=== PATIENT | male | born 1955 | race African-American/Black ===

== ENCOUNTER 2018-06-08 09:12 | Inpatient (IN) | payer MEDICARE, BC ==
[~2018-06-08] VITALS: Ht 177.8 cm; Wt 81.2 kg
[2018-06-08] MEDS ORDERED: TYLENOL 500MG500 MG PO (15:22)
[2018-06-08] MEDS ORDERED: NORVASC 5MG5 MG/TAB PO (15:23)
[2018-06-08] MEDS ORDERED: ASPIRIN 81M81 MG/TA2 PO (15:24)
[2018-06-08] MEDS ORDERED: LIPITOR20 MG PO (15:25)
[2018-06-08] MEDS ORDERED: FLEXERIL 1010 MG/TAB PO (15:26)
[2018-06-08] MEDS ORDERED: COZAAR100 MG PO (15:27)
[2018-06-08] MEDS ORDERED: MOBIC15 MG PO (15:29)
[2018-06-08] MEDS ORDERED: TOPROL XL100 MG PO (15:31)
[2018-06-08] MEDS ORDERED: OPANA ER40 MG PO (15:34)
[2018-06-08] MEDS ORDERED: K-TAB20 PO (15:35)
[2018-06-08] MEDS ORDERED: FLOMAX 0.40.4 MG/CAP PO (15:36)
[2018-06-08 15:48] VITALS: BP 169/73; PULSE 63; TEMP 98
[2018-06-08 18:00] VITALS: BP 160/70; PULSE 60; TEMP 98.2
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
--- NOTE | 2018-06-08 20:30 | NUR ---
HS med reviewed and taken without problems. Patient alert and oriented x4. Speech slurred and nurse has patient repeat sentence. Patient able to move fingers left hand slightly and shrug shoulder. Moves LLE on bed and wiggles toes. See admission assessment form. Denies pain at this time. Used bedpan and urinal twice and continent liquid brown medium bm x2. Cdif negative. BLE/LUE elevated on pillow.
--- NOTE | 2018-06-09 01:37 | NUR ---
Patient rests in bed with eyes closed. Respirations with ease.
--- NOTE | 2018-06-09 02:00 | NUR ---
Patient awake and assisted onto bed beckwith and with pants/pullup down. No BM but voids 100mls hazy nuris urine. Denies pain or further needs.
[2018-06-09 03:49] VITALS: BP 129/85; PULSE 63; TEMP 98
--- NOTE | 2018-06-09 05:40 | NUR ---
Patient awake. Denies pain. Requests to get up in chair. Max assist to sit up on side of bed. Poor trunkal control and falls backward onto bed. Max 2 assist to transfer to recliner. Mucinex given for c/o chest conjestion.
--- NOTE | 2018-06-09 08:46 | NUR ---
Report from ALINA Faulkner. SCDs off as pt out of bed to chair for breakfast. Speech very slurred but understandable >50% of time. Pt takes one pill at a time with thin liquids. On mech soft diet. Pt reports back pain but declines tylenol at this time. Has wet cough.
--- NOTE | 2018-06-09 11:55 | NUR ---
Tylenol given for back pain per pt's request. Two assist to stand, doff soiled pull ups, and don new. PRECISION [employer]CRA[employer] SYSTEM[employer] ASSEMBLER reports pt was incont of BM shortly after.
--- NOTE | 2018-06-09 15:43 | NUR ---
Initial visit; Patient thanked Pipe Welder for stopping by and offering God's blessings. Patient appeared almost too exausted to talk.
--- NOTE | 2018-06-09 16:14 | NUR ---
MARTHA and SW student met with patient to discuss discharge planning. Patient reports he lives alone in [place]. Patients PCP is Dr Pettit and he obtains his medications from [facility]. Patient reports he has a DPOA and his sister was going to bring it in. SW will request. Patient does not have any equipment at this time and will need to obtain anything he would need at discharge. He reports his apartment is on the ground floor but that he doesnt have a walk in shower. He is willing to call and look into an ADA apartment if needed. His sister offered to have him move in with her however he does not want to do that. MARTHA provided the IPR team conference notes and explained them. Patient will give to sister. SW will continue to follow.
--- NOTE | 2018-06-09 16:52 | NUR ---
Pt's family visiting, questions answered.
[2018-06-09 18:41] VITALS: BP 151/72; PULSE 73; TEMP 98.4
--- NOTE | 2018-06-09 19:37 | NUR ---
Pt to BSC with 2 assist and platform walker, returned to chair, changed into hospital gown, call light in reach, report to ALINA Fountain.
--- NOTE | 2018-06-09 20:30 | NUR ---
PT RESTING IN BED. HO B ELEVATED. VISITING WITH FAMILY. LT MOUTH DROOP. SPEECH DIFFICULT TO UNDERSTAND MOST ITMES. A&O. LT SIDED WEAKNESS. CAN WIGGLE LITTLE FINGER SOME. ABLE TO MOVE TOES UP AND DOWN. GOOD SENSATION NOTED. LOOSE THICK COUGH. UNABLE TO EXPECTORATE SPUTUM. SEE MAR FOR GUAFENISIN GIVEN. PT C/O CHRONIC BACK PAIN. SEE MAR FOR PAIN MEDS GIVEN. ABLE TO SWALLOW PILLS WHOLE WITH WATER. SWALLOW PRECAUTIONS NOTED. CALL LIGHT IN REACH. BED ALARM SET.
--- NOTE | 2018-06-10 01:30 | NUR ---
PT WANTS UP IN RECLINER. 2:1 PIVOT TRANSFER. UNABLE TO MANIPULATE LLE. CHAIR ALARM SET. CALL LIGHT IN REACH.
--- NOTE | 2018-06-10 04:14 | NUR ---
ASSISTED BACK TO BED WITH 2 ASSIST. CALL LIGHT IN REACH. BED ALARM SET. SPEECH VERY DIFFICULT TO UNDERSTAND.
[2018-06-10 04:43] VITALS: BP 149/65; PULSE 65; TEMP 98.2
--- NOTE | 2018-06-10 10:00 | NUR ---
Patient was a two assist with getting in [id number] and transferring to the wheelchair to get ready for therapy.
--- NOTE | 2018-06-10 10:38 | NUR ---
Patient attended morning therapies. Tolerating diet well. He has a very runny nose today with clear drainage. No bowel movement this morning. Used Sxz-dv-gccod lift to help with transferring from recliner to wheelchair. He reports not sleeping well last night due to his bed being uncomfortable. Placed an air mattress on bed this morning. Will continue to monitor.
--- NOTE | 2018-06-10 14:56 | NUR ---
Left message for Dr. Aragon asking if he would want to try patient on Melatonin, since he did not sleep well last night; starting Flonase ?; and requesting an order for RT to see patient due to difficulty with coughing at HS - possible breathing treatment? Awaiting a return call.
--- NOTE | 2018-06-10 15:42 | NUR ---
Dr. Aragon evaluated patient see new orders: Flonase, Breathing Tx's and Melatonin for HS. Will continue to monitor.
[2018-06-10 17:59] VITALS: BP 153/71; PULSE 62; TEMP 97.8
--- NOTE | 2018-06-10 20:30 | NUR ---
FOUND PT LAYING ALMOST SIDEWAYS IN BED. LEGS HANGING OFF SIDE OF BED. REPOSITIONED. BED ALARM SET AT THIS TIME. CALL LIGHT IN REACH.
--- NOTE | 2018-06-10 20:45 | NUR ---
PT RESTING IN BED. SPEECH VERY DIFFICULT TO UNDERSTAND. WANTED UP IN CHAIR. ENC PT TO WAIT FOR 2 NURSES AVAILABILITY. BED ALARM SOUNDING. PT TRYING TO GET OUT OF BED PER SELF. PT RELATED STUFFED UP AND COULDNT BREATHE THROUGH HIS NOSE AND WANTED UP. ENC PT TO BRING HOB UP UNTIL STAFF IS AVAILABLE. LT LEG STIFF. 2:1 MAX ASSIST TO CHAIR. FLONASE GIVEN. CALLED RT TO GIVE SVN TX. CHAIR ALARM SET. CALL LIGHT IN REACH. LT SIDE FLACCID WITH STIFFNESS LLE.
--- NOTE | 2018-06-10 20:56 | NUR ---
DUONEB GIVEN, MUCOMYST NA AT THIS TIME.
--- NOTE | 2018-06-10 21:42 | NUR ---
MAX ASSIST BACK TO BED. MELATONIN GIVN EARLIER. READY FOR SOME SLEEP. CALL LIGHT IN [facility]. BED ALARM SET.
--- NOTE | 2018-06-11 05:00 | NUR ---
ASSISTED PT 2:1 WITH SIT TO STAND LIFT TO [facility]. PASSED LG AMT FLATUS WITH VOID. URINE OSCAR SL HAZY. THEN TRANSFERRED TO RECLINER. PT RELATES HE SLEPT PRETTY WELL THROUGHT THE NIGHT.
[2018-06-11 05:06] VITALS: BP 135/60; PULSE 70; TEMP 98.2
--- NOTE | 2018-06-11 05:15 | NUR ---
CHAIR ALARM SET. CALL IGHT IN REACH. NO OTHER NEEDS.
--- NOTE | 2018-06-11 09:39 | NUR ---
Patient currently working with therapy at this time. He was a one assist with a gait belt to go from sitting position to upright position with this nurse. Patient was able to reposition himself by pushing his bottom back into the chair with this nurse guiding him. Patient not able to use his left arm or leg due to being flaccid. Patient needed set up for grooming this morning, but was able to do the tasks himself. This nurse used sit to stand lift to assist him with getting dressed prior to PT this morning. Denies pain at this time. Will continue to monitor.
[2018-06-11 15:27] VITALS: BP 137/64; PULSE 60; TEMP 98.1
--- NOTE | 2018-06-11 18:00 | NUR ---
Patient attended all therapies today. Family came to visit him multiple times today. Patient's sister will be leaving town for a week starting this weekend. She gave a list of family members to assist with medical concerns to this nurse. Refer to IPR Census sheet. Patient did not have a runny nose today and has been receiving breathing treatments that have been effective. Educated patient on what to do if he gets the feeling that he can't breath. He demonstrated that he was able to use his call light and that he would elevate the head of his bed while waiting for staff to come and evaluate him. He had gotten up last night with out using his call light and said that he would use his call light tonight. Patient denied pain at this time. He had family help him with ordering his meals today. Reported off to night nurse.
--- NOTE | 2018-06-12 03:34 | NUR ---
TJHE PT WAS BEDRESTING, WATCHES BASKET BALL ON TV. PLEASANT, CALLED FOR ASSISTANCE TO THE BR, UP WITH SIT TO STAND LIFT TO TOILET, ATTEMPTED BM, JUST GAS. VOIDED, RETURNED TO BED, HS CARES DONE, HS SNACK OF 2 VANILLA PUDDINGS, REFUSED THE ENSURE. ENCOURAGED FLUIDS HIS URINE IS OSCAR. EXPLAINED TO HIM THAT WE LIKE IT TO LOOK LIKE WEAK LEMNAID AND NOT ICED TEA OR APPLE JUICE. HE WAS ABLE TO PULL HIMSELF UP IN BED WHEN THIS NURSE TRUNDELENBERED HIM. HE HAS AN OCCATIONAL SNEEZE AND COUGH. NO PHLEGM NOTED. HIS SPEECH IS DIFFICULT TO UNDERSTAND. HE APPEARS TO GET ADEQUATE SLEEP.
--- NOTE | 2018-06-12 03:55 | NUR ---
PT INDISPOSED AT THIS TIME.
[2018-06-12 05:48] VITALS: BP 148/75; PULSE 72; TEMP 98.2
--- NOTE | 2018-06-12 14:24 | NUR ---
PT IS SITTING IN RECLINER WITH FAMILY PRESENT. SHIVAM PAIN OR NEEDS.
[2018-06-12 17:17] VITALS: BP 148/57; PULSE 68; TEMP 98
--- NOTE | 2018-06-13 01:38 | NUR ---
THE PT HAS BEEN UP TO THE BR X 3 WITH JUST GAS ELIMINATION, HE KEEPS STATING THAT THE MILK AND ENSURE WILL TRIGGER HIS BOWELS BUT HAVE YET TO DO SO. HE HAS BEEN INC WITHIN HIS DEPENDS X 2. FAMILY VISISTED LAST NIGHT. THE PT HAS A SUPEERFICIAL TINY CRACKED AREA, RIGHT UPPER INNER BUTTOCK. CLEANSED, PAT DRY. HE STATED THAT HE CAN'T SLEEP WITH THE SCD'S ON, BUT WAS WILLING TO WEAR THEM UNTIL ABOUT 2330. APPEARS TO GET ADEQUATE SLEEP.
--- NOTE | 2018-06-13 04:40 | NUR ---
BEDRESTING WITH EYES CLOSED, RESP EVEN. APPEARS TO GET ADEQUATE SLEEP.
[2018-06-13 05:40] VITALS: BP 156/77; PULSE 72; TEMP 97.5
--- NOTE | 2018-06-13 09:57 | NUR ---
Report from ALINA Srinivasan. SCD's off as pt to chair for breakfast, legs elevated, call light in reach. Pt reported he needed changed when nurse brought morning pills, transferred with xen-bw-ybwda lift to , was incont of urine, changed pull ups, assisted with donning shirt, duarte cares provided, returned to chair. Young man visiting and enjoying conversation w/ pt. Pt's speech still slurred, difficult to understand at times, tylenol and flexeril given for back pain per pt's request. Takes a couple pills at a time with thin liquids. Gripper socks in place. Chair alarm on.
--- NOTE | 2018-06-13 11:52 | NUR ---
Pt's sister and niece visiting. Boosted pt up in chair. Alarm on, call light in reach. Reports pain 5/10 at this time. Yellow gripper socks in place.
--- NOTE | 2018-06-13 17:03 | NUR ---
Pt bedrested this afternoon, called to toilet but incont immediately, changed and to chair with lift. Call light in reach, legs elevated.
[2018-06-13 17:18] VITALS: BP 133/65; PULSE 69; TEMP 98.6
[2018-06-13 17:39] VITALS: BP 136/65; PULSE 66; TEMP 98.1
--- NOTE | 2018-06-13 18:20 | NUR ---
Pt called to toilet, was continent, returned to bed, SCDs in place, alarm on, call light in reach.
--- NOTE | 2018-06-14 01:17 | NUR ---
THE PT CALLED FOR ASSISTANCE TO THE BR, UP WITH 2 ASSIST WITH SIT TO STAND LIFT. HS SNACK GIVEN, LOTION TO VERY DRY LEGS, TOLERATED SCD'S LONGER TONIGHT, INC OF BLADDER. JUST PASSING GAS, ENCOURAGED TO TAKE BOWEL REGIME AGAIN, ACCEPTED ALL TONIGHT. SENNA, COLACE AND MIRALAX IN CRANBERRY JUICE TAKEN. HE STATED THAT HE WAS HAVING INC ISSUES EVEN PRIOR TO HIS CVA. EXTRA STRENGTH TYLENOL AND MELATONIN AT HS WITH GOOD EFFECT.
--- NOTE | 2018-06-14 04:22 | NUR ---
ASSISTED THE PT WITH USING HIS URINAL, VOIDED. APPEARS TO GET ADEQUATE SLEEP.
--- NOTE | 2018-06-14 05:05 | NUR ---
CALLED TO SAY HE WANTED UP TO THE CHAIR, EXPLAINED NO SECOND PERSON AVAILABLE RIGHT NOW, MUST WAIT UNTIL 2 ASSIST TO GET UP.
[2018-06-14 05:21] VITALS: BP 122/71; PULSE 64; TEMP 98.3
--- NOTE | 2018-06-14 08:30 | NUR ---
Report from ALINA Srinivasan. Pt to chair for breakfast. Takes pills a couple at a time with thin liquids. Yellow gripper socks in place, chair alarm on, call light in reach. Speech cont to be garbled. PRN pain meds given for back.
--- NOTE | 2018-06-14 12:20 | NUR ---
SCDs off this morning as pt to chair for breakfast prior to therapies.
--- NOTE | 2018-06-14 17:39 | NUR ---
Pt toileted with lift, to chair for supper, set up assist, some coughing on mech soft roast beef in gravy. Call light in reach. Alarm on.
[2018-06-14 18:01] VITALS: BP 104/50; PULSE 69; TEMP 97.8
--- NOTE | 2018-06-14 19:50 | NUR ---
Patient report received from Alis Augustin at bedside during shift change. Patient resting in bed comfortably at this time. SCDs to bilateral lower ext. Asleep but arouses easily. Patient reports some mild pain to his back, requests flexeril and tylenol before bed. No other needs observed/reported at this time.
[2018-06-14 20:45] VITALS: BP 118/64; PULSE 80; TEMP 98.6
[2018-06-15 04:39] VITALS: BP 104/67; PULSE 67; TEMP 97.6
--- NOTE | 2018-06-15 07:08 | NUR ---
Patient report given to ALINA Ray. Patient resting comfortably throughout the night. Extra strength tylenol given to patient around 0500 for back pain.
--- NOTE | 2018-06-15 11:47 | NUR ---
Follow-up visit; Patient spoke about his stroke and thanked Urban Sociologist for looking in on him and keeping him in her prayers.
[2018-06-15 15:58] VITALS: BP 110/63; PULSE 74; TEMP 98.1
--- NOTE | 2018-06-15 16:09 | NUR ---
Patient resting in recliner at this time, call light in reach and was two person pivot transfer to his bed from his recliner. Patient tolerating diet well. Reported pain to lower back this afternoon 8 and given prn flexeril and tylenol. Will continue to monitor.
--- NOTE | 2018-06-15 21:30 | NUR ---
HS meds reviewed and given. Reports pain to right shoulder and muscle relaxant given. Mucinex given for c/o chest/nasal conjestion and RT called and into do treatment. Reports feels breathing better following treatment. Up 2 assist via sit to stand lift to the bathroom and back to bed. Has poor trunkal control and assist given to stay at sitting position on side of bed.
--- NOTE | 2018-06-15 23:08 | NUR ---
Reports flexeril helped pain. Lights turned off.
--- NOTE | 2018-06-16 00:45 | NUR ---
Patient up to bathroom via lift x 3 this shift. Incontinent large amount of urine x1 and had medium soft formed brown BM.
--- NOTE | 2018-06-16 03:30 | NUR ---
Patient calls and reports he's incontinent of urine. Changed/cleaned by nurse.
[2018-06-16 03:44] VITALS: BP 111/62; PULSE 71; TEMP 97.6
--- NOTE | 2018-06-16 14:31 | NUR ---
Patient resting in recliner at this time, call light in reach, alarm is on. Patient attended all therapies today and is currently with therapy at this time. Patient will be started on bowel training regimen that was discussed at today's care plan meeting. Patient continues to have a cough and expiratory wheezes. See new orders per Dr. Goodman.
--- NOTE | 2018-06-16 14:50 | NUR ---
ASKED PT IF HE WOULD LIKE A BREATHING TX AT THIS TIME. HE SAYS HE IS FEELING BETTER AND WILL WAIT UNTIL TONIGHT.
--- NOTE | 2018-06-16 16:01 | NUR ---
MARTHA contacted patient's sister to review IPR team conference notes. She reports she will be back in [place] next week and will visit. She is also interested in doing a family meeting. MARTHA will inform IPR director of this. MARTHA then met with patient and provided IPR team conference notes.
--- NOTE | 2018-06-16 16:07 | NUR ---
SW scheduled family meeting with sister for 06/23 at 2pm.
[2018-06-16 16:49] VITALS: BP 126/71; PULSE 84; TEMP 98.2
--- NOTE | 2018-06-16 19:00 | NUR ---
Patient attended all therapies, tolerated diet well today. Currently is resting in bed, alarm on and call light in reach. Patient was a two max assist pivot transfer this evening, with lots of cueing. Patient has been having expiratory wheezing see new orders for CXR today. Patient has been having a low blood pressure and was seen by Dr. Goodman today, see new orders to lower dose of Metoprolol per Dr. Goodman. Patient was taking Flexeril yesterday and it made him very drowsy and made his transfers more unsteady. See new orders for Flexeril to be decreased to 5 mg instead of 10 mg. Patient was updated on this. Family and a friend stopped by to see him this evening. Social Work called and updated patient's sister Lazaro following the care plan meeting today.
--- NOTE | 2018-06-16 20:45 | NUR ---
HS meds along with tylenol and flexeril for low back pain reviewed and given whole without problems. Rests in bed and RT into give treatment. Lung sounds initially with expiratory course rhonki but clears with couph.
--- NOTE | 2018-06-16 22:45 | NUR ---
Calls for urinal and assisted to place. Already incontinent of urine and TELEPHONE REPAIRER changes.
--- NOTE | 2018-06-16 23:30 | NUR ---
Patient rests with eyes closed. Respirations with ease.
--- NOTE | 2018-06-17 01:00 | NUR ---
Patient awake and attempted to use urinal. Incontinent urine in brief and changed.
--- NOTE | 2018-06-17 02:31 | NUR ---
Patient reports chest/nasal conjestion and repostions self up in bed. Mucinex given and RT called patient request for breathing treatment.
[2018-06-17 04:11] VITALS: BP 105/58; PULSE 83; TEMP 97.4
--- NOTE | 2018-06-17 05:59 | NUR ---
PATIENT NOW RESTS WITH EYES CLOSED. RESPIRATIONS WITH EASE.
[2018-06-17 08:17] VITALS: BP 115/70
--- NOTE | 2018-06-17 08:24 | NUR ---
Report from ALINA Faulkner. SCDs off as pt to chair for breakfast, takes pills one at a time with thin liquids, some coughing. Chair alarm on, call light in reach.
--- NOTE | 2018-06-17 08:38 | NUR ---
Mucinex given per pt's request, for chest congestion.
--- NOTE | 2018-06-17 12:00 | NUR ---
Pt declined offer to toilet, states he went before group therapy.
[2018-06-17 15:17] VITALS: BP 115/55; PULSE 82; TEMP 98.3
--- NOTE | 2018-06-17 16:49 | NUR ---
Pt has male visitor, to chair for supper, alarm on, call light in reach. Set up assist for food.
--- NOTE | 2018-06-17 22:30 | NUR ---
PT HAS BEEN SLEEPING. AWAKE NOW. INCONTINENT OF URINE. WEARS ADULT DIAPERS. SKIN INTREGRITY INTACT. CLEANED UP AND REPOSTIONED. RT SIDE FLACCID EXCEPT ALITTLE MOVEMENT IN RT FINGERS. SPPECH GARBLED BUT A&O X4. PT HAS CONGESTED RESPIRATIONS. VERY WEAK COUGH UNABLE TO EXPECTORATE ANY SPUTUM. RT HERE EALIER TO PROVIDE SVN TX. MUCINEX GIVEN. SEE MAR FOR TYLENOL, MELATONIN, AND FLEXARIL GIVEN. CALL LIGHT IN REACH. BED ALARM SET.
--- NOTE | 2018-06-17 22:50 | NUR ---
PT USED CALL LIGHT. NEEDED ASSIST WITH REPOSITIONED. FOUND PT LEANED TO RIGHT EDGE ON BED AND SCOOTED DOWN IN BED. PT WAS TRYING TO MALTSTER BANANA ON FLOOR. PT EXHIBITS POOR SAFETY JUDGEMENTS. 2:1 REPOSITIONED. RT BEDRAILS ELEVATED. LT DOWN. ENC PT TO CALL FOR ASSIST RATHER THAN POSSIBLY FALLING OUT OF BED. PT AGREED. CALL LIGHT IN REACH. BED ALARM SET.
[2018-06-18 04:49] VITALS: BP 137/57; PULSE 78; TEMP 97.8
--- NOTE | 2018-06-18 07:20 | NUR ---
PT RECEIVED ALERT/AWAKE JUST FINISHING BREAKFAST. BBSH COARSE IN LOWER LOBES .WHEN ASKED TO COUGH PT PRODUCES STRONG/CLEARING COUGH. NO SPUTUM PRODUCTION AT THIS TIME.
--- NOTE | 2018-06-18 14:10 | NUR ---
Visited with patient about working on repositioning himself in his chair when he starts to slide downward. He demonstrated putting his feet in the correct position, using right foot to lift left foot over. He was able to lean forward in the chair, raise slightly and then use legs to help with moving himself back in chair correctly and safely. He stated, "I want to walk by next Thursday." Patient used the IS appropriatly and was able to elevate to 500 ml. Following all therapies today he reported pain of 6/10 and was given prn flexeril and tylenol with good effect. Patient has had no incontinent episodes this shift.
--- NOTE | 2018-06-18 16:36 | NUR ---
Sw attempted to meet with patient but he was busy will try again
[2018-06-18 18:51] VITALS: BP 109/52; PULSE 85; TEMP 98.2
--- NOTE | 2018-06-18 20:26 | NUR ---
Patient did very well this afternoon with transfers. He was a one person assist with gait belt using his walker and a stand by staff person. His goal is to try to walk by Thursday. Patient currently resting in recliner family by his side, call light in reach and slip proof socks on.
--- NOTE | 2018-06-18 21:00 | NUR ---
PT SITTING UP IN RECLINER. VISITING WITH FAMILY. CALL LIGHT IN REACH. CHAIR ALARM SET.
--- NOTE | 2018-06-19 01:14 | NUR ---
PT REPORTS HAVING DIFFICULTY BREATHING. CONGESTED RESP. UNABLE TO COUGH THICK SPUTUM UP. GAVE GUAFENESIN. CALLED RT FOR BREATHING TX. O2 SAT 97% RA. RT HERE TO START TX.
[2018-06-19 04:56] VITALS: BP 143/73; PULSE 80; TEMP 97.5
--- NOTE | 2018-06-19 08:00 | NUR ---
PT IN BED AND REQUESTS TO GET UP. ASSISTED TO PUT ON HIS LONG PANTS. PT UNABLE TO REACH PANTS. MAX ASSISTED TO SIT UP AND STAY UP IN BED. PT STOOD UP AND PIVOT TRANSFERED WITH MAX ASSIST TO THE RECLINER. REQUESTED/GIVEN MUCINEX FOSR CONGESTION. PT STAES HE CAN NOT COUGH UP THE SPUTUM IN HIS LUNGS. PT STATES PAIN OT HIS BACK IS 6/10, REFUSED PAIN MEDS. STATES WHAT HE WANTS IS A NEW BACK, RIGHT ARM AND RIGHT LEG WITH A GLEEM IN HIS EYES. SPEECH IS GARBLED AND DIFFICULT TO UNDERSTAND. CALL LIGHT IN REACH, ALARM ON IN CHAIR. PT VOIDS USING URINAL AND URINE IS YELLOW.
--- NOTE | 2018-06-19 14:54 | NUR ---
PT IS TALKING WITH FAMILY OR FRIEND AT BEDSIDE AT THIS TIME. CHECKED ON PT AND OFFERED BREATHING TX AT THIS TIME. PT STATES THAT HE IS DOING OK BUT WISHES TO HAVE ONE LATER TONIGHT. WILL PASS ON TO SENIOR WRITER.
[2018-06-19 15:04] VITALS: BP 116/59; PULSE 75; TEMP 98.4
--- NOTE | 2018-06-19 19:45 | NUR ---
PT REQUEST BREATHING TREATMENT FOR THICK SPUTUM BLOCKING AIRWAY. NOTIFIED RT. PT C/O BACK PAIN. LEVEL 09/06 SEE MAY.
--- NOTE | 2018-06-19 21:00 | NUR ---
PT RESTING IN BED. HOB ELEVATED. SPEECH GARBLED. LT SIDED WEAKNESS/FLACCID. RESP IMPROVED FROM SVN TREATMENT. PT HAS DIFFICULTY COUGHING UP THINK SPUTUM IN TRACHEA. ENC TO USE I.S. VERY FREQUENTLY. PT PULLS <500ML. SEE MAR FOR PAIN MEDS GIVEN. HAS CHRONIC BACK PAIN HISTORY. WEARS DIAPERS FOR INCONTINENCE. CALL LIGHT IN REACH. BED ALARM SET.
[2018-06-20 04:37] VITALS: BP 113/61; PULSE 78; TEMP 97.8
--- NOTE | 2018-06-20 11:42 | NUR ---
Report from ALINA Fountain. Pt called to get out of bed for breakfast, one assist with lift, to toilet, cont of urine. Alisa cares provided. To chair with alarm on and set up assist for meal. Tylenol given for chronic low back pain. Pt assisted with dressing, set up for oral cares. Pt called to return to bed, toileted first, no output, continent. Used lift to practice prolonged standing, cues for posture, also practiced sit/supervisor shipping lift x5. Pt stood for one minute. In bed, SCDs on, yellow gripper socks in place, call light in reach, alarm on, pillow under LUE with weak grasp.
--- NOTE | 2018-06-20 13:02 | NUR ---
Pt ate 50% lunch: peaches, mashed pot/gravy, half of chicken/gravy. [place] shake requested and provided.
--- NOTE | 2018-06-20 14:30 | NUR ---
Pt transferred OOB with lift, toileted. With lift, pt sat, then stood for one minute, repeated 5 times. Denies tiring. Settled in chair. Pt in bed at shift change, call light in reach, alarm on, report to ALINA Fountain. Tylenol and flexeril and mucinex given per pt request after supper.
[2018-06-20 15:10] VITALS: BP 112/63; PULSE 81; TEMP 98
--- NOTE | 2018-06-20 21:00 | NUR ---
PT RESTING IN BED. CHEERFUL. GARBLED SPEECH. LT SIDED WEAKNESS. WANTED GUAFENESIN. TOO SOON. STILL HAS TRACHEAL CONGESTION AND UNABLE TO EXPECTORATE. RT WILL COME FOR SVN. ENC USE OF I.S. FREQUENTLY. USING URIANL WITH ASSIST. CALL LIGHT IN REACH. BED ALARM SET.
--- NOTE | 2018-06-21 00:45 | NUR ---
MOD ASSIST TO SIT TO STAND. TRANSFERRED TO BR. HAD SMALL LOOSE GLORIA BM. RETURNED TO BED. REQUESTED SVN TX AND GUAFENESIN. SEE MAR. CALL LIGHT IN REACH. SCD'S ON BILAT.
--- NOTE | 2018-06-21 01:22 | NUR ---
PT C/O THICK SPUTUM IN THROAT. UNABLE TO EXPECTORATE. ENC I.S. USE AFTER RT TX. PT C/O CHRONIC BACK PAIN. SEE MAY. .
[2018-06-21 03:24] VITALS: BP 132/60; PULSE 71; TEMP 97.8
--- NOTE | 2018-06-21 08:58 | NUR ---
Patient attended PT therapy this morning and is currently resting in wheelchair awaiting for ST to start. Patient was a two person assist using gait belt for pivot transfer to recliner from bed. Patient eating well this morning. Took pills whole with water. Complaining of some right side pain and back pain and given prn tylenol. Will continue to monitor. The night nurse used a [id number] last night due to not having an aid to assist her. Patient in pleasent mood this morning and already setting goals. Patient stating, "I am going to walk today."
--- NOTE | 2018-06-21 15:57 | NUR ---
SW met with the patient to introduce oneself and to check needs. The patient reports thats he has no questions or concerns at this time. He states he is relaxing now after therapy and was watching the news. MARTHA reviewed the plan of a family meeting for this Thursday at 1400. The patient confirmed the plan. SW to continue to follow.
[2018-06-21 17:35] VITALS: BP 125/62; PULSE 81; TEMP 97.8
--- NOTE | 2018-06-21 21:00 | NUR ---
Shift assessment complete. Patient awake, in bed. Patient c/o 8/10 back pain. Prn tylenol given, will continue to assess pain. Patient denies further needs. Will continue to assess.
--- NOTE | 2018-06-22 02:32 | NUR ---
Patient in bed, awake. C/o 11/06 pain in back (chronic). Prn medication given, will reassess. Brief changed per pt request, incontinent of urine.
[2018-06-22 03:27] VITALS: BP 139/69; PULSE 80; TEMP 98.3
--- NOTE | 2018-06-22 11:28 | NUR ---
Follow up visit from the buffing wheel raker. No needs right now.
--- NOTE | 2018-06-22 12:49 | NUR ---
Pt reports pain 8/10, agreed to tylenol, but when nurse returned to room, PT was getting ready to take pt to therapy early and pt declined.
--- NOTE | 2018-06-22 16:22 | NUR ---
Pt returned to bed this afternoon, c/o fatigue today. Assisted with ordering meals for tomorrow. Arms elevated on pillows, SCDs to BLE, heels floated.
--- NOTE | 2018-06-22 17:24 | NUR ---
Pt did not like meal choice, ordered replacement. To chair for supper. Alarm on, call light in reach.
[2018-06-22 17:55] VITALS: BP 122/63; PULSE 78; TEMP 97.4
--- NOTE | 2018-06-22 19:30 | NUR ---
Pt up to bathroom with 2 assist, gait belt and platform walker. Pt is very weak and has decreased muscle tone on left side, but is able to ambulate with assist. Pt had bowel movement. Shift assessment completed. Pt reports chronic back pain and states he would like some tylenol and flexiril at bedtime. Pts speech is garbled and difficult to understand. Pt also reports mucus that is difficult to clear and has been taking Mucus relief as needed for that. HOB elevated. SCDs placed on patient. Pillows placed on both sides. Call light in reach. Bed alarm set. No needs noted at this time.
--- NOTE | 2018-06-22 22:00 | NUR ---
Pt up to bathroom with 2 assist, gait belt and platform walker. Well tolerated by patient.
[2018-06-23 06:05] VITALS: BP 130/65; PULSE 89; TEMP 97.8
--- NOTE | 2018-06-23 06:05 | NUR ---
PT up to bathroom 2 person assist, gait belt and walker. L side weakness unchanged. Pt requested to sit in chair. No other needs noted.
[2018-06-23 15:44] VITALS: BP 103/55; PULSE 87; TEMP 98.7
--- NOTE | 2018-06-23 16:11 | NUR ---
MARTHA and MARTHA student attended a family meeting with the patient and patient's sister, Lazaro. Also present was IPR Director, PT, OT, and ST. IPR Director, Amelia, started by explaining the purpose of the meeting. PT, OT, and ST then discussed how the patient is doing. MARTHA introduced herself and her role. Amelia discussed how the plan is to re-evaluate the patient next Thursday, 06/30. The patient's sister informed the team that they plan on the patient returning back to her home upon discharge and that she will have help from her , daughter, and son. She states that they all have flexible schedules to help with transportation to appointments. The team answered all questions. MARTHA and MARTHA student the followed up with the patient and patient's sister to present and review the IPR Team Conference Note. The patient was agreeable to to the plan of being re-evaluated next Thursday. SW to continue to follow.
--- NOTE | 2018-06-23 21:15 | NUR ---
PT RESTING IN BED. CALL LIGHT SOUNDING FOR THE LAST FEW MINUTES. PT ANGRY NO ONE HAS ANSWERED HIS LIGHT IN THE LAST HOUR AND HALF. PT USING HIS CELL PHONE TO GET A RIDE HOME. HE RELATES HE WANTS OUT OF HERE. CALL CHARGE NURSE NOTIFIED OF PT COMPLAINT. NOTIFIED MARINE DIESEL MECHANIC. MOD 1 ASSIST TO BR WITH PLATFORM WALKER. VERY UNSTEADY. CHANGED WET PULL UPS. ASSISTED BACK TO BED. CALL LIGHT IN REACH. BED ALARM SET. PT ON CELL PHONE USING PROFANITY. PT6 REFUSES HS MEDICATIONS. LT SIDED WERAKNESS AND NEGLECT.
--- NOTE | 2018-06-23 21:35 | NUR ---
Patient attended all therapies today. He was a two max assist with transfers this morning. He was independent with grooming, was a set up with his meals due to left side flaccidity. Patient required staff to wipe him, but he was able to pull his pants up and down with his right hand, just needed max CGA when doing this since he looses balance easy. Pleasent mood this shift. Family came to visit him. Patient denied any need for pain meds this morning and afternoon, but did request tylenol and flexeril this evening following his supper meal. Will continue to monitor.
--- NOTE | 2018-06-23 22:00 | NUR ---
PT REQUESTED HIS SCHEDULED MEDICATIONS NOW. PT MORE CALM NOW. SAYS BROTHER WON'T COME TO PICK HIM UP. HE WILL STAY. OFFERED TO NOTIFY MAYTE YEE IN AM. - PT REQUESTED THIS. NO OTHER NEEDS IDENTIFIED. CALL LIGHT IN REACH. BED A LARM SET.
[2018-06-24 04:49] VITALS: BP 153/62; PULSE 79; TEMP 98
--- NOTE | 2018-06-24 11:24 | NUR ---
Patient currently with therapy at this time. Patient tolerating diet well this morning. Reporting 6/10 pain and given prn pain meds with some effect.
[2018-06-24 15:17] VITALS: BP 137/65; PULSE 86; TEMP 98.1
--- NOTE | 2018-06-24 20:03 | NUR ---
PT ASKED FOR TX. PT STATES HE FEELS BETTER AFTER TX
--- NOTE | 2018-06-24 21:00 | NUR ---
ASSISTED 2:1 TO BR WITH PLATFORM WALKER. LT ARM NEGLECT. SEE MAR FOR PAIN MED GIVEN. ORIENTED AND COOPERTIVE. CALL LIGHT IN REACH, BED ALARM SET.
[2018-06-25 04:59] VITALS: BP 127/65; PULSE 74; TEMP 98
--- NOTE | 2018-06-25 08:23 | NUR ---
Report from ALINA Fountain. Pt preparing for shower, wants to take meds afterwards. Denies pain. Pleasant and alert.
--- NOTE | 2018-06-25 08:42 | NUR ---
Pt showered with OT.
--- NOTE | 2018-06-25 09:55 | NUR ---
Pt agreeable to toilet prior to ST. Requests pain meds after PT session later. One assist to amb to BR with platform walker, mod assist with gait belt and cues given. AFO to LLE, shoes in place.
--- NOTE | 2018-06-25 11:33 | NUR ---
MARTHA and SW student met with the patient to check-in with him. The patient reports that he is living. The patient informed MARTHA that he plans to exercise and then watch some basketball and baseball this weekend. He states that his favorite baseball team is the [email or web address]. The patient had no questions or concerns for SW at this time. SW to continue to follow.
--- NOTE | 2018-06-25 12:21 | NUR ---
Pt declines offer to toilet at this time. In chair with alarm on, call light in reach. AFO in place.
[2018-06-25 15:14] VITALS: BP 106/60; PULSE 85; TEMP 98.1
--- NOTE | 2018-06-25 16:54 | NUR ---
Pt to chair with alarm on, call light in reach for supper. Took a few steps with platform walker. Gripper socks in place.
--- NOTE | 2018-06-25 19:51 | NUR ---
pt requested breathing tx. after tx pt states he feels like he can breathe easier
--- NOTE | 2018-06-25 21:00 | NUR ---
Patient rests in bed watching basketball. Tylenol, flexeril, and melatonin given per patient request along with HS meds. Denies need for toileting.
--- NOTE | 2018-06-25 22:37 | NUR ---
Patient continues watching basketball game. Denies pain at this time. Incontinent urine in pullup and nurse assists to change. Voids 100mls in urinal.
--- NOTE | 2018-06-26 00:30 | NUR ---
Patient ambulates to the bathroom heavy mod steadying assist with platform walker. Drags left foot and nurse assists with LUE onto platform. Voids and back to bed.
--- NOTE | 2018-06-26 01:26 | NUR ---
Patient rests with eyes closed. Respirations with ease.
[2018-06-26 04:00] VITALS: BP 134/60; PULSE 78; TEMP 98.7
--- NOTE | 2018-06-26 04:15 | NUR ---
Patient up heavy mod 1 assist with platform walker to recliner per request. Denies further needs. MACHINE SHOP INSTRUCTOR assisted patient to change pullup earlier for urinary incontinence "could't reach my urinal".
--- NOTE | 2018-06-26 04:49 | NUR ---
Patient rests up in recliner with eyes closed. Respirations with ease.
--- NOTE | 2018-06-26 09:27 | NUR ---
Pt is sitting up in recliner. He is awake and A/Ox4. Pt has very garbled speech and at times is hard to comprehend. He does state he is having 7/10 pain to his back, requested PRN tylenol which was given. Pt has left sided weakness and hand dinkey locomotive operator remain unequal. Pt denies any needs, will monitor.
--- NOTE | 2018-06-26 09:29 | NUR ---
Pt to group therapy session.
--- NOTE | 2018-06-26 17:56 | NUR ---
Pt has had an uneventful shift. His chronic back pain has been controlled with PRN tylenol and flexeril. Pt assisted back to bed per request. Denies any other needs.
[2018-06-26 18:40] VITALS: BP 124/87; PULSE 85; TEMP 98.1
--- NOTE | 2018-06-26 19:23 | NUR ---
pt asked for tx. after tx pt states he likes them that they make him feel better.
--- NOTE | 2018-06-26 21:00 | NUR ---
HS meds along with flexeril, tylenol and mucinex reviewed and given. Ambulates several times to the bathroom with mod/max assist with platform walker. Unsteady, awkward and has difficulty turning around. Incontinent of urine onto gown and changed. Has small bm and requests nurse to wipe him. Sits up in recliner due to chest conjestion when resting back in bed. At 2300 patient assisted back to bed. Requires assistance with LLE out of bed and to sit up on side of bed.
--- NOTE | 2018-06-27 01:03 | NUR ---
Patient rests with eyes closed. Respirations with ease.
--- NOTE | 2018-06-27 01:40 | NUR ---
Patient up to the bathroom max 1 assist very unsteady/dragging LLE. Assist with LUE on and off platform. Pullups slightly wet with urine and changed.
--- NOTE | 2018-06-27 03:00 | NUR ---
Patient incontinent of urine in pullup and nurse changes. Patient to bathroom and then bed. Max assist LLE into bed.
[2018-06-27 03:57] VITALS: BP 146/64; PULSE 78; TEMP 97.4
--- NOTE | 2018-06-27 05:00 | NUR ---
Patient resting in bed til now. Called for assist, incontinent of urine, up to bathroom and gown/pad changed. Sits up in recliner. Tylenol given for low back pain 7-11/06.
--- NOTE | 2018-06-27 11:54 | NUR ---
Patient currently resting in recliner at this time, family by his side and watching TV. Patient was a max 2 assist with walker and gait belt to bathroom this morning. Patient was a max 1 assist with walker and gait belt from bathroom to his recliner. Patient complaining of back pain this morning and given prn tylenol with good effect. Patient educated on health choices for snacks since he is newly diagnosed diabetic. Will continue to educate since he seems to be in denial with adjusting his sugar intake at this time. Will continue to monitor. Daughter was instructed by patient to bring in jennifer[employer] chocolate bars and other sweets. The daughter spoke with this nurse first and only gave him gum that had sugar in it, but brought the other stuff home with her. Will continue to monitor.
--- NOTE | 2018-06-27 12:52 | NUR ---
Patient was a one max assist transfer with walker and gait belt to the bathroom this afternoon.
[2018-06-27 15:37] LABS: COLLECTION METHOD CLEAN CATCH
[2018-06-27 15:45] LABS: MUCOUS Present /lpf; PH 6 (5-8); SQUAMOUS EPITHELIAL 0-2 /hpf; URINE APPEARANCE Clear; URINE BACTERIA Rare /hpf; URINE BILIRUBIN Negative (NEGATIVE); URINE BLOOD Negative (NEGATIVE); URINE COLOR Yellow; URINE GLUCOSE Negative (NEGATIVE); URINE KETONE Negative (NEGATIVE); URINE LEUKOCYTE ESTERASE Negative (NEGATIVE); URINE NITRATE Negative (NEGATIVE); URINE PROTEIN(semi-quant) Negative (NEGATIVE)
[2018-06-27 17:44] VITALS: BP 119/51; PULSE 83; TEMP 97.2
--- NOTE | 2018-06-27 17:56 | NUR ---
Patient has been having urinary frequency and urine had foul odor this morning. See new orders for UA to reflex to culture. Results came back being clean at this time. No new orders at this time. Patient has been complaining of urinary frequency and would like to have the physician increase his Flomax to two a day. Will communicate this request to the night nurse to pass along to day shift.
--- NOTE | 2018-06-27 19:25 | NUR ---
Pt resting in bed. Family at bedside. No distress noted. Pt c/o back pain 07/07 that he says is chronic. Pt requesting PRN Tylenol at bedtime. Pt also c/o urinary frequency. Pt denies needs for bathroom at this time. Respirations even and unlabored. Lungs clear. BS+. Pedal pulses equal-2+. No edema noted. Pt has left sided weakness/ flaccidity. No needs expressed. will continue to monitor.
--- NOTE | 2018-06-27 22:40 | NUR ---
Pt up to BSC with 2 assist, gait belt and platform walker. Pt had incontinent episode in brief. Brief changed. Pericare provided. Pt stated he had to have a BM, but was not successful.
--- NOTE | 2018-06-28 03:00 | NUR ---
Pt up to bathroom with 2 assit, platform walker and gait belt. Void x 1 + incontinent in brief. Brief changed. Bed pad changed. Well tolerated by patient.
--- NOTE | 2018-06-28 05:30 | NUR ---
Pt ambulated from bed to chair. Pt's brief and gown changed. No further needs noted. Pt slept periodically throughout the night. No acute changes to assessment.
[2018-06-28 05:34] VITALS: BP 126/54; PULSE 81; TEMP 97.6
--- NOTE | 2018-06-28 07:54 | NUR ---
Report from ALINA Gonzalez. SCDs off as pt OOB to chair for breakfast, ate well, tylenol for pain, mucinex for productive cough. Toileted, continent, to chair with alarm on, call light in reach. Cran juice with potassium as pt c/o urinary frequency.
--- NOTE | 2018-06-28 14:42 | NUR ---
SW met with the patient to check-in with after the weekend. The patient reports that he did a lot of walking and watched some basketball and baseball games. He did not have any questions or concerns for SW at this time. MARTHA to continue to follow.
--- NOTE | 2018-06-28 14:59 | NUR ---
Pt in chair, tylenol given for low back pain, see pain score doc. AFO to LLE, pillow under LUE.
[2018-06-28 18:10] VITALS: BP 118/65; PULSE 86; TEMP 97.8
--- NOTE | 2018-06-28 20:00 | NUR ---
Shift assessment complete. Patient in bed, awake. C/o 10/06 pain in back, prn medication given. Will continue to assess. Patient denies further needs at this time.
[2018-06-29 03:18] VITALS: BP 133/65; PULSE 84; TEMP 97.9
--- NOTE | 2018-06-29 03:29 | NUR ---
Patient ambulated from bed to BR with assist of walker, gait belt, and assist x2. Back to chair d/t back discomfort. C/o pain 5/10 in back, prn pain medication given. Will continue to assess.
--- NOTE | 2018-06-29 05:12 | NUR ---
Patient in chair, awake. States 7/10 back pain. Prn pain medication previously given. Patient states, he is tolerating 7/10 pain for now. Will notify us if that changes. Will also continue to assess.
--- NOTE | 2018-06-29 07:58 | NUR ---
Report from ALINA Acosta. Pt called to toilet, had finished breakfast in chair, yellow gown and gripper socks in place. Smeared stool in pull up, pt changed out of and into new with set up and SBA while seated on toilet riser. Cont of urine. Requests tylenol for back pain 09/06 and mucinex, cont K+ in cran juice. To chair with alarm on, call light in reach, LUE on pillow.
--- NOTE | 2018-06-29 10:00 | NUR ---
SCDs off as pt out of bed for breakfast
--- NOTE | 2018-06-29 12:41 | NUR ---
Pt ate lunch in recliner, call light in reach, set up for oral cares. Tylenol for back pain 11/06, wants to wait until after therapy for flexeril.
--- NOTE | 2018-06-29 14:29 | NUR ---
Pt called to toilet, continent, requested to return to bed, SCDs on, pillows under heels and arms, alarm on, call light in reach.
--- NOTE | 2018-06-29 16:51 | NUR ---
Pt called to toilet, incont of urine within brief, pt changed himself, removed pants, donned new pull up. To chair for supper, set up assist. Alarm on, call light in reach, pt changed into yellow gown for bed, yellow gripper socks in place.
[2018-06-29 17:00] VITALS: BP 117/65; PULSE 79; TEMP 97.1
--- NOTE | 2018-06-29 21:00 | NUR ---
Shift assessment complete. Patient ambulated to BR with assist x2. Back to bed. Tolerated well. C/o /10 pain in back, prn pain medication given. Refuses SCD's. Will continue to monitor.
--- NOTE | 2018-06-30 01:45 | NUR ---
Patient ambulated to BR with assist x2. C/o 11/06 back pain. Unable to have tylenol d/t dose exceeding tylenol amount allowed in 24 hours. Patient declined to have me call for a different pain medication. Will continue to assess.
[2018-06-30 03:42] VITALS: BP 141/65; PULSE 84; TEMP 97.5
--- NOTE | 2018-06-30 04:07 | NUR ---
Patient ambulated to BR with assist x2. Tolerated well. C/o 8/10 pain in back, prn tylenol given. Denies further needs. Will continue to assess.
--- NOTE | 2018-06-30 09:04 | NUR ---
Patient working with therapy at this time. Patient tolerated breakfast well this morning. Reports not sleeping well last night.
[2018-06-30 16:21] VITALS: BP 132/68; PULSE 92; TEMP 98
--- NOTE | 2018-06-30 17:06 | NUR ---
SW and SW student met with the patient and patient's sister, Lazaro, to present and discuss the IPR Team Conference Note. SW reviewed how the patient is functioning with therapy and the teams recommendation of a re-evaluation next Thursday and a tentative discharge for next Thursday, 07/09. The patient's and patient's sister report that they are in agreeance to the plan. The patient's sister reports that she will be leaving for a work conference next Thursday and will not be returning back until 07/14. She states her her and son can help take care of the patient while she is gone. She was also in agreeance to come and receive training from the therapists this Thursday and for a home visit next Thursday, 07/12. The patient's sister plans to contact, Myah KENYON), to schedule a time for training and the home visit. Lazaro states that she will also try to have her and son come to that training. While at the hospital, the patient's sister also spoke to PT (Joel) and got his recommendations for equipment. The patient will need a front wheeled walker and a small adult wheelchair. The patient's sister reports that she would prefer [facility]. SW will need to obtain a patient choice form for DME and order equipment. SW to continue to follow.
--- NOTE | 2018-06-30 18:30 | NUR ---
Patient attended all therapies today. He is a one assist with walker and gait belt to bathroom and back to recliner. Patient in pleasent mood this shift. He only had one episode of incontinence this evening. He is currently resting in bed. This nurse inflated bed mattress per patient request. Denied any questions at this time.
--- NOTE | 2018-06-30 22:30 | NUR ---
Patient has been resting in bed with eyes closed since up to the bathroom at shift change. Awake at this time and heavy mod steadying assist to the bathroom. Max assist pullup down and up and with LLE in and out of bed. Mod assist with torso to sit up on side of bed. Reports pain low back and some air let out of air mattress "too hard" and flexeril, tylenol and mucinex given with HS meds. Takes snack of ice cream.
--- NOTE | 2018-07-01 01:00 | NUR ---
Patient rests with eyes closed. Respirations with ease.
--- NOTE | 2018-07-01 03:13 | NUR ---
Patient resting in recliner. Respirations with ease.
--- NOTE | 2018-07-01 05:00 | NUR ---
Patient up to the bathroom mod assist with walker. Passes gas but no void or bm. Max assist with legs into bed. Denies needs or complaints.
[2018-07-01 05:14] VITALS: BP 131/67; PULSE 86; TEMP 97.6
--- NOTE | 2018-07-01 07:38 | NUR ---
Report from ALINA Faulkner. Pt called to get out of bed, SCDs off, pt mod assist out of bed, amb to BR with gait belt, mod assist, incont of urine in pull up. Pt changed own pull up. Yellow gown and gripper socks in place. To chair with set up for breakfast.
--- NOTE | 2018-07-01 08:46 | NUR ---
Pt takes pills one or two at a time with thin liquids, potassium in cran juice. With ST now.
[2018-07-01 17:49] VITALS: BP 120/62; PULSE 88; TEMP 97.6
--- NOTE | 2018-07-01 21:00 | NUR ---
PT RESTING IN BED. REAL ESTATE UNDERWRITER ASSISTED PT TO BR W/WALKER. UNSTEADY GAIT. BACK TO BED. BED ALARM SET. CALL LIGHT IN REACH.
--- NOTE | 2018-07-02 01:50 | NUR ---
ASSISTED TO BR WITH WALKER FROM RECLINER. VERY UNSTEADY. LEFT SIDE NEGLECT. NEEDS CUED FOR SAFETY. PT C/O BACK PAIN. SEE MAR. CALL LIGHT IN REACH. BED ALARM SET.
[2018-07-02 04:29] VITALS: BP 140/76; PULSE 80; TEMP 97.6
--- NOTE | 2018-07-02 11:46 | NUR ---
Follow-up; Patient thanked for wishing him well this morning.
--- NOTE | 2018-07-02 14:06 | NUR ---
Patient currently resting in recliner at this time, call light in reach and chair alarm is on. Reviewed with patient the process he needs to go through every time he is transferred or standing up. Patient reporting pain 5-6/10 and did receive prn pain med with some effect. Will continue to monitor.
--- NOTE | 2018-07-02 16:23 | NUR ---
SW met with the patient and patient's family to discuss the plan of a tentative discharge for next Thursday, 07/09. The patient's family had questions about equipment and are interested in getting the patient set up for meals on wheels for the noon hour. SW will need to contact meals on wheels to get that set up and to order a wheelchair and walker. SW to continue to follow.
[2018-07-02 16:45] VITALS: BP 128/63; PULSE 85; TEMP 98.5
--- NOTE | 2018-07-02 20:00 | NUR ---
1900 SHIFT REPORT FROM MARY COATS RN. PT TRANSFERRED TO BR PER STELLA MOLINA LPN. 2:1 TRANSFER FROM BR TO BED. PT FATIGUED WITH AMB WITH WALKER. LT SIDE WEAKNESS AND NEGLECT. CALL LIGHT IN REACH. BED ALARM SET.
--- NOTE | 2018-07-02 20:16 | NUR ---
PT ASLEEP AT THIS TIME. DID NOT WAKE TX TO ASK IF HE WANTED A PRN DUONEB TX.
[2018-07-03 04:31] VITALS: BP 115/60; PULSE 80; TEMP 98.2
--- NOTE | 2018-07-03 06:05 | NUR ---
ASSISTED TO BR WITH WALKER. NEEDS CUED TO LIFT KNEE TO TAKE NEXT STEP. VERY UNSTEADY AMB. PT C/O CONSTIPATION. GAVE [place].
--- NOTE | 2018-07-03 08:00 | NUR ---
Patient up in chair eating breakfast at this time. Alert and oriented x 3. Shift assessment complete. Denies pain or further needs at this time. Left sided neglect noted.
[2018-07-03 15:39] VITALS: BP 129/57; PULSE 79; TEMP 97.9
--- NOTE | 2018-07-03 18:11 | NUR ---
Patient currently resting in bed. Has been up to chair for meals. Patient up to restroom multiple times throughout the day, x1 assist with walker and gait belt. Needs reminders to move left lower extremity when ambulating. Requires assistance to open packages when setting up meals. Requested pain meds once this shift d/t lower back pain, tylenol given per orders. Denies further needs at this time. Will report off to cage shift manager.
--- NOTE | 2018-07-04 02:48 | NUR ---
PT RESTLESS TONIGHT. SITTING UP IN RECLINER. MAX ASSIST TO BR WITH WALKER THEN TO BED. GARBLED SPEECH NOTED. NEEDS ASSIST WITH TOILETING TASKS.
[2018-07-04 05:16] VITALS: BP 134/70; PULSE 83; TEMP 97.7
--- NOTE | 2018-07-04 06:35 | NUR ---
PT HAS BEEN AWAKE MOST OF THE NIGHT. UP IN RECLINER NOW.
--- NOTE | 2018-07-04 07:10 | NUR ---
bedside shift report received from ALINA Fountain
--- NOTE | 2018-07-04 08:30 | NUR ---
awake sitting up in recliner, assisted into bathroom and then back out and into recliner, had breakfast and tolerated well, c/o pain and medicated with flexeril 5mg and tylenol 1000mg
--- NOTE | 2018-07-04 09:45 | NUR ---
up in chair watching TV, assists into bathroom and then again back into recliner
--- NOTE | 2018-07-04 10:00 | NUR ---
ASSISTED PT FROM BATHROOM TO RECLINER WITH 1 ASSIST AND WHEELED WALKER. PT HAS MODERATE AMT OF WEAKNESS NOTED TO LEFT UPPER AND LOWER EXTREMITIES.
--- NOTE | 2018-07-04 11:00 | NUR ---
resting in chair, full assessment completed, see interventions for further info
--- NOTE | 2018-07-04 11:45 | NUR ---
assisted to sitting up straight in chair to eat lunch, denies other needs
--- NOTE | 2018-07-04 13:40 | NUR ---
assisted up to bathroom and voided qs, then out of bathroom and into bed to take a nap
--- NOTE | 2018-07-04 14:30 | NUR ---
resting in bed watching TV, denies needs
[2018-07-04 16:00] VITALS: BP 134/71; PULSE 80; TEMP 97.7
--- NOTE | 2018-07-04 18:46 | NUR ---
bedside shift report given to ALINA Fountain
--- NOTE | 2018-07-04 20:00 | NUR ---
PT SITTING IN RECLINER. TRANSFERRED TO BED. LT SIDE NEGLECT AND WEAKNESS. NEEDS CUING FOR LIFTING LT LEG WITH EACH STEP. PT HAS CHRONIC BACK PAIN. SEE MAR FOR MEDS GIVEN. CALL LIGHT IN REACH. BED ALARM SET.
[2018-07-05 06:22] VITALS: BP 149/73; PULSE 75; TEMP 98
--- NOTE | 2018-07-05 08:15 | NUR ---
Report from ALINA Fountain. Pt was assisted out of bed by PHARMACY INFORMATICS MANAGER, to chair for breakfast with set up assist, c/o pain in groin area from incont irritation. In yellow gown, gripper socks, call light in reach. SCDs off as pt OOB.
--- NOTE | 2018-07-05 08:17 | NUR ---
Pt's left eye has additional redness (like ruptured capilaries) at 9 o'clock as well as previous 4-6 o'clock.
--- NOTE | 2018-07-05 10:00 | NUR ---
Pt finished showering, dried off duarte areas well. This nurse did not find any open areas of skin, nor blood anywhere. Pt did have white slough in skin folds between scrotum and inner thighs bilaterally. Wiped away and dried with washcloth. Pt agreeable to desenex powder. Submitted order per discussion with Dr. Goodman.
--- NOTE | 2018-07-05 12:49 | NUR ---
Young male friend visiting.
--- NOTE | 2018-07-05 13:56 | NUR ---
Pt's sister and man here to take pt for home eval with Troy, PT, OT. Donned pt's shoes, AFO to LLE
--- NOTE | 2018-07-05 14:00 | NUR ---
Pt departed for home eval.
--- NOTE | 2018-07-05 15:13 | NUR ---
SW attempted to check-in with patient and review the discharge plan. Patient is out with the therapists for a home eval this afternoon. MARTHA will follow up tomorrow.
--- NOTE | 2018-07-05 16:01 | NUR ---
Pt returned to room from Home Eval.
[2018-07-05 16:18] VITALS: BP 130/65; PULSE 88; TEMP 98.3
--- NOTE | 2018-07-05 17:53 | NUR ---
Pt received wrong chicken and noodles, toileted, donned yellow gown, returned to chair to enjoy the ckn & noodle stew with set up assist, chair alarm on, call light in reach.
--- NOTE | 2018-07-05 20:45 | NUR ---
HS meds reviewed along with melatonin, flexeril and tylenol and given per patient request for sleep/pain. Up mod 1 assist with walker to the bathroom. Manages pants down with steadying assist and up/nurse assists up on left side. Sits up in recliner watching basketball game.
--- NOTE | 2018-07-05 22:00 | NUR ---
Assisted to bed.
--- NOTE | 2018-07-05 23:43 | NUR ---
Rests with eyes closed. Respirations with ease.
--- NOTE | 2018-07-06 01:50 | NUR ---
Patient rests with eyes closed. Respirations with ease.
[2018-07-06 03:37] VITALS: BP 139/69; PULSE 83; TEMP 98.2
--- NOTE | 2018-07-06 05:47 | NUR ---
Patient sits up in recliner this am. Denies further needs. Up to the bathroom x 4 this shift.
--- NOTE | 2018-07-06 09:14 | NUR ---
Patient currently working with OT at this time. During morning assessment Patient said, "I am not sure if I slept well or not last night. I don't remember." Patient reported pain 6/10 to lower back this morning and given prn Flexeril and Tylenol. Will continue to monitor. Patient visited with this nurse about going home later this week and what his goals were. Patient in pleasent mood at this time.
--- NOTE | 2018-07-06 14:30 | NUR ---
MARTHA met with patient to obtain DME choice form and check in after the weekend. Patient chose [facility] to supply his walker. It has recommended for patient to have a wheelchair as well but insurance will not pay for both. MARTHA was informed that patient's sister, Lazaro, would be willing to private pay for a wheelchair. MARTHA left a message for Lazaro regarding this.
[2018-07-06 17:18] VITALS: BP 123/66; PULSE 87; TEMP 98.4
--- NOTE | 2018-07-06 17:39 | NUR ---
When transferring patient from bathroom to bed patient's legs got weak and this nurse was able to get him to the recliner, but barely. This nurse called for assistance and then he was a two person max assist to the bed from the recliner due to his left leg not wanting to move for him. Will continue to monitor.
--- NOTE | 2018-07-06 20:00 | NUR ---
Patient up heavy mod 1 assist to the bathroom with walker. Some assistance left hand onto walker. Drags left foot. Assist with pullup down/up left side. Patient reports unable to lift legs into bed or hips over in bed even with encouragement/instruction. HS meds along with sleep aide and pain meds reviewed and given. Patient up to the bathroom again at 2220 and incontinent of urine through brief. Nurse removed brief off LLE and applied new brief. Patient reports sternly "I need my legs over in bed". Explained legs are in the center and moved left leg over slightly. Patient states "If you don't like your job get a different one". Upset nurse would not grab his hand and pull him up on side of bed. Explained not safe and assisted patient to sit up from his back. Nurse assisting with legs in and out of bed.
--- NOTE | 2018-07-06 23:15 | NUR ---
Rests quietly in bed. Respirations with ease.
--- NOTE | 2018-07-07 03:40 | NUR ---
Patient resting in bed til now. REFINERY OPERATOR REFORMING UNIT helps to the bathroom then to chair.
[2018-07-07 04:17] VITALS: BP 158/74; PULSE 96; TEMP 98.3
--- NOTE | 2018-07-07 06:00 | NUR ---
Patient rests in recliner with eyes closed. Respirations with ease.
--- NOTE | 2018-07-07 14:41 | NUR ---
SW met with patient to review IPR team conference notes. MARTHA reported to patient that the plan is for patient to discharge home on Thursday with home health (PT, OT, Speech). Patient reports he is ready to discharge. SW also reported that his sister, Lazaro, has obtained a wheelchair at [facility] and he will also get a walker from [facility]. SW reported that Lazaro also would like SW to fax a referral to [facility]. SW also provided the Medicare.gov home health resource list. Patient reports he is okay with any home health agency his sister chooses. SW then contacted [facility] and they report they do not have a Speech therapist that goes to [place]. MARTHA contacted Lazaro about this and gav her the other home health options from the Medicare.gov resource list. Lazaro reports she will contatc SW after she does research on these agencies.
--- NOTE | 2018-07-07 15:26 | NUR ---
MARTHA spoke with patient's sister and she reports she spoke with someone at [facility] and they report there is speech therapy services in [place]. MARTHA then contacted Laure at [facility] and she reports that the person SW spoke with previously was incorrect and they do have speech therapists in . MARTHA will fax referral to [facility].
--- NOTE | 2018-07-07 17:00 | NUR ---
Patient attended all therapies today. He is currently sitting in recliner, call light in reach and chair alarm is on. Patient tolerated diet well this shift. Pain was between 4-7/10 this shift, but only wanted pain meds this morning. Will continue to monitor. Call placed to patient's sister Lazaro and she will be calling Dr. Grijalva to set up the Neurology appointment and will call the nurse tomorrow to update her on the date and time of that appointment. This nurse left a note for the day nurse to call and schedule a time for patient to be seen out patient at sleep lab. This nurse will then call Curt with the time and date of that appointment.
[2018-07-07 18:00] VITALS: BP 129/67; PULSE 96; TEMP 97.4
--- NOTE | 2018-07-07 23:53 | NUR ---
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 ASSESSMENT COMPLETE. VS STABLE. REQUESTING FLEXERIL FOR BACK PAIN. GIVEN PER DR ORDER. DENEIS ANY C /O AT THIS TIME. ENCOUARGED TO CALL FOR NEEDS. BED IN LOW POSITION, WHEELS LOCKED, ALARM ON AND CALL LIGHT WITHIN REACH. WILL MONITOR.
[2018-07-08 03:46] VITALS: BP 129/61; PULSE 79; TEMP 98.2
--- NOTE | 2018-07-08 05:00 | NUR ---
UP TO BATHROOM FROM CHAIR WITH NO ASSIST AT THIS TIME. FOUND PATIENT IN CHAIR STATING HE TOOK HIMSELF TO THE BATHROOM. WILL MONITOR.
--- NOTE | 2018-07-08 07:42 | NUR ---
Report from nurse Anne. Pt to chair for breakfast, SCDs off.
--- NOTE | 2018-07-08 08:19 | NUR ---
Pt given tylenol for low back pain. Yellow gown and gripper socks in place.
--- NOTE | 2018-07-08 08:39 | NUR ---
Pt toileted, returned to chair with alarm on. ST here to see pt.
--- NOTE | 2018-07-08 08:50 | NUR ---
Discussed with MARTHA Fournier notes left from ALINA Ray: 1) measurement of front entrances are 2'5" and 2'11", Irlanda thinks Freda already got a wheelchair. 2) Freda will schedule appt with Dr. Grijalva, neuro and let nurse know info.
--- NOTE | 2018-07-08 17:12 | NUR ---
Pt set up assist for supper, chair alarm on, call light in reach.
[2018-07-08 18:00] VITALS: BP 131/68; PULSE 75; TEMP 98.1
--- NOTE | 2018-07-08 19:38 | NUR ---
Pt toileted at shift change, returned to recliner, chair alarm on, call light in reach, pillow under LUE. Fresh ice water provided. Yellow gripper socks in place. Report to ALINA Fountain. Asked SYNCHRONOUS MOTOR ASSEMBLER to obtain vitals.
--- NOTE | 2018-07-08 19:39 | NUR ---
SCDs off as pt out of bed
--- NOTE | 2018-07-08 19:51 | NUR ---
GEOINT ANALYST picked up pt's tray, did not chart intake nor offer to take pt to bathroom per pt.
--- NOTE | 2018-07-08 20:00 | NUR ---
ASSISTED PT TO BR WITH WALKER. VERY UNSTEADY. LT SIDED NEGLECT. WOULD HAVE FALLEN IF THIS NURSE WASN'T HOLDING ON TO HIM WITH GAIT BELT. PT SEEMS TO THINK HE IS VERY SAFE AND STEADY. PT VOIDED. HAD DIFFICULTY PULLING PANTS BACK UP ON LT SIDE. WITHOUT LOSING BALANCE. PT C/O CHRONIC BACK PAIN LEVEL 5. SEE MAR FOR MEDS GIVEN. TRANSFERRED HBACK TO CHAIR. FEET ELEVATED. CHAIR ALARM ON. CALL LIGHT IN REACH.
[2018-07-09 05:19] VITALS: BP 142/67; PULSE 68; TEMP 98.1
[2018-07-09] MEDS ORDERED: FLOMAX 0.40.4 MG/CAP PO (09:10)
[2018-07-09] MEDS ORDERED: FLEXERIL5 MG PO (09:11)
[2018-07-09] MEDS ORDERED: TOPROL XL 50MG50 MG PO (09:11)
[2018-07-09] MEDS ORDERED: MUCUS RELIEF200 MG PO (09:12)
[2018-07-09] MEDS ORDERED: TYLENOL 325MG325 MG PO (09:12)
[2018-07-09] MEDS ORDERED: FLONASE NASAL S16 GM NS (09:13)
[2018-07-09] MEDS ORDERED: MELAT3MGTAB PO (09:13)
[2018-07-09] MEDS ORDERED: DESENEX21 TP (09:13)
--- NOTE | 2018-07-09 10:39 | NUR ---
Report from ALINA Fountain. SCDs off as pt out of bed. Tylenol and flexeril given for low back pain 10/06. Returned flonase and desenex powder to pt to take home today.
--- NOTE | 2018-07-09 16:14 | NUR ---
Called in prescription for lipitor as pt did not have at home. Pt's brother in law and friend here to waste picker pt. Going over discharge instructions. SCDs off as pt in chair about to leave.
--- NOTE | 2018-07-09 16:55 | NUR ---
Printed pt health summary, discharge summary, and home med list, made extra copy for family, reviewed with pt and brother in law and friend. Stressed which meds needed picked up from the pharm as indicated by "Sent to Pharm [facility]" and akhil a tanana on paperwork. Answered questions about medications. Belongings gathered by staff and pt's family, including "hip kit", clothes, shoes, cell phone and canal tender. Pt's AFO and tennish shoes in place. Pt transported via wheelchair with family and staff, assisted into vehicle and seatbelted for ride home. Pt and family denied questions, hugged and thanked each other.
== END 2018-07-09 16:40 | disposition home health service (06) | DRG 57 ==
PROVIDERS: Internal Medicine; ADMIT Hospitalist
DX: I69.354 Hemiplegia and hemiparesis following cerebral infarction affecting left non-dominant side (principal); I50.22 Chronic systolic (congestive) heart failure; I69.392 Facial weakness following cerebral infarction; I69.321 Dysphasia following cerebral infarction; I69.393 Ataxia following cerebral infarction; I11.0 Hypertensive heart disease with heart failure; E78.5 Hyperlipidemia, unspecified; F17.210 Nicotine dependence, cigarettes, uncomplicated; M54.5 Low back pain; G89.21 Chronic pain due to trauma; J01.90 Acute sinusitis, unspecified; F10.20 Alcohol dependence, uncomplicated; R19.7 Diarrhea, unspecified
CPT/HCPCS: 99222-AI; 99232-AI; 99239; A9284; J1644

== ENCOUNTER 2018-10-19 09:03 | Day surgery (SDC) | payer MEDICARE, BC ==
[2018-10-19] VITALS (11 sets, daily range): BP systolic 149–190; BP diastolic 78–96; PULSE 58–88; TEMP 98
[~2018-10-19] VITALS: Ht 177.8 cm; Wt 77.3 kg
[~2018-10-19 09:03] MED LIST: ASPIRIN 81M81 MG/TA2 PO; COZAAR100 MG PO; DESENEX21 TP; FLEXERIL 1010 MG/TAB PO; FLEXERIL5 MG PO; FLOMAX 0.40.4 MG/CAP PO; FLONASE NASAL S16 GM NS; K-TAB20 PO; LIPITOR20 MG PO; MELAT3MGTAB PO; MOBIC15 MG PO; MUCUS RELIEF200 MG PO; NORVASC 5MG5 MG/TAB PO; OPANA ER40 MG PO; TOPROL XL 50MG50 MG PO; TOPROL XL100 MG PO; TYLENOL 325MG325 MG PO; TYLENOL 500MG500 MG PO
[2018-10-19] MEDS ORDERED: APRESOLINE50 MG PO (09:23)
[2018-10-19] MEDS ORDERED: NATURAL IRON65 MG PO (09:23)
[2018-10-19] MEDS ORDERED: LOPRESSOR100 MG PO (09:24)
[2018-10-19] MEDS ORDERED: MICARDIS80 MG PO (09:24)
[2018-10-19] MEDS ORDERED: FLOMAX 0.40.4 MG/CAP PO (09:24)
[2018-10-19 09:51] LABS: HEMATOCRIT 39.1 % (42.0-52.0); HEMOGLOBIN 12.4 g/dl (13.5-18.0); MEAN CELL VOLUME 89 fl (80.0-100.0); MEAN CORPUSCULAR HEMOGLOBIN 28 pg (27.0-31.0); MEAN CORPUSCULAR HGB CONC 32 g/dl (33.0-37.0); MEAN PLATELET VOLUME 12.6 fl (7.4-10.4); PLATELET COUNT 116 K/mm3 (130-400); RED BLOOD COUNT 4.39 M/mm3 (4.20-5.60); REDCELL DISTRIBUTION WIDTH-CV 14.3 % (11.5-14.5)
[2018-10-19 10:32] LABS: INR 1.1 (0.8-3.0); PROTHROMBIN TIME 12.5 SECONDS (9.7-12.8)
[2018-10-19 10:36] LABS: CALCIUM 9.2 mg/dL (8.4-10.2); CREATININE, serum 0.79 (0.66-1.25); POTASSIUM 3.8 mmol/L (3.4-5.0)
--- NOTE | 2018-10-19 10:46 | NUR ---
ALL MEDICATIONS GIVEN VORB WITH MD. SEE MERGE FOR ALL MEDICATION ADMIN TIMES. SEE MERGE FOR ALL RASS ASSESSMENTS DURING AND POST PROCEDURE. RADIAL PULSE +2, POSITIVE BARBEAU'S TEST IN THE RIGHT WRIST.
--- NOTE | 2018-10-19 12:00 | NUR ---
Back from Fraud Representative. Alert and oriented, denies pain and needs at this time. VSS. Right Tband to wrist noted with 12 cc air , good pulses and cap refill <3 secs noted. Right groin CD&I, soft to palpaton at site and pedal pulses palpable. VSS. Will continue to monitor
--- NOTE | 2018-10-19 12:10 | NUR ---
Patient transported back to room 14. Patient hooked up to monitoring equipment, VS stable. Patient denies any pain at this time. Bedside report given to ALINA Garcia. Visualized right radial and right groin with RN. TR band remains in place with 12 cc of air in the band. No oozing or hematoma noted, soft and nontender. Right groin site clean, dry, and intact, no oozing or hematoma noted at this time. Site soft and nontender. Discussed with patient importance of wrist restrictions and keeping head down, leg straight. Bed in locked and lowest position, call light within reach.
--- NOTE | 2018-10-19 14:15 | NUR ---
Raising HOB slowly x3. Right groin CD&I and soft to palpation. Right wrist CD&I
--- NOTE | 2018-10-19 14:49 | NUR ---
12 cc out of Tband over 15 minutes. No bleeding noted, pressure dresing appled.
--- NOTE | 2018-10-19 15:10 | NUR ---
INT discontinued intact. Discharge instructions given to pt/sister. Transferred to private car by ron
== END 2018-10-19 15:15 | disposition home or self-care (01) ==
LOC: COL.CAR 09:03
PROVIDERS: Internal Medicine Interventional Cardiology
DX: I25.10 Atherosclerotic heart disease of native coronary artery without angina pectoris (principal); I11.0 Hypertensive heart disease with heart failure; I50.22 Chronic systolic (congestive) heart failure; I42.9 Cardiomyopathy, unspecified; E11.9 Type 2 diabetes mellitus without complications; Z82.49 Family history of ischemic heart disease and other diseases of the circulatory system; Z79.899 Other long term (current) drug therapy
CPT/HCPCS: J1644; J2250; J3010; Q9967

== ENCOUNTER → 2019-05-11 | Outpatient (CLI) | payer MEDICARE, BC ==
[~2019-05-11] MED LIST changes: +APRESOLINE50 MG PO; +LOPRESSOR100 MG PO; +MICARDIS80 MG PO; +NATURAL IRON65 MG PO
== END ==
LOC: COL.RAD 08:21
DX: I10 Essential (primary) hypertension (principal); I74.5 Embolism and thrombosis of iliac artery; R91.1 Solitary pulmonary nodule
CPT/HCPCS: Q9967